=== PATIENT | female | born 1995 | race Caucasian/White ===

== ENCOUNTER 2018-03-07 08:47 | Inpatient (IN) | payer MEDICAID ==
[~2018-03-07] VITALS: Ht 149.9 cm; Wt 84.5 kg
[2018-03-07] VITALS (18 sets, daily range): BP systolic 100–137; BP diastolic 54–83; PULSE 68–87; TEMP 97.9–98.4
[2018-03-07] MEDS ORDERED: PRENATAL1 TA7 PO (09:12)
[2018-03-07 09:48] LABS: BASO % 0.4 % (0.0-2.0); EOS # 0.1 (0.0-0.7); EOS % 0.9 % (0-4.0); GRAN % 66.3 % (42.2-75.2); HEMATOCRIT 38.2 % (35.0-45.0); HEMOGLOBIN 12.9 g/dl (12.0-15.0); LYMPH # 2.2 (1.2-3.4); LYMPH % 23.6 % (20.0-51.0); MEAN CELL VOLUME 82 fl (80.0-95.0); MEAN CORPUSCULAR HEMOGLOBIN 28 pg (26.0-32.0); MEAN CORPUSCULAR HGB CONC 34 g/dl (33.0-37.0); MEAN PLATELET VOLUME 10.3 fl (7.4-10.4); MONO # 0.8 (0.1-0.6); MONO % 8.5 % (1.7-9.3); PLATELET COUNT 284 K/mm3 (130-400); RED BLOOD COUNT 4.65 M/mm3 (4.10-5.30)
[2018-03-08 00:51] VITALS: BP 97/55; PULSE 73; TEMP 98.1
[2018-03-08 04:54] VITALS: BP 119/77; PULSE 67
[2018-03-08 07:20] VITALS: BP 100/59; PULSE 70; TEMP 98.5
[2018-03-08] MEDS ORDERED: IBU600 MG PO (09:13)
== END 2018-03-08 16:15 | disposition home or self-care (01) | DRG 775 ==
LOC: LDRO 08:47 → LDR 08:55 → OB 17:45
PROVIDERS: Obstetrics & Gynecology
PROC: 10E0XZZ Delivery of Products of Conception, External Approach (ICD-10-PCS; principal; 2018-03-07)
PROC: 0UQJXZZ Repair Clitoris, External Approach (ICD-10-PCS; 2018-03-07)
PROC: 0HQ9XZZ Repair Perineum Skin, External Approach (ICD-10-PCS; 2018-03-07)
DX: O70.0 First degree perineal laceration during delivery (principal); Z37.0 Single live birth; O99.02 Anemia complicating childbirth; D64.9 Anemia, unspecified; Z3A.39 39 weeks gestation of pregnancy
CPT/HCPCS: J2590; J7120

== ENCOUNTER 2020-11-16 07:28 | Inpatient (IN) | payer OTHER ==
[~2020-11-16] VITALS: Ht 149.9 cm; Wt 89.1 kg
[2020-11-16] VITALS (36 sets, daily range): BP systolic 70–146; BP diastolic 30–79; PULSE 56–113; TEMP 98.1–99
[~2020-11-16 07:28] MED LIST: IBU600 MG PO; PRENATAL1 TA7 PO
--- NOTE | 2020-11-16 07:45 | NUR ---
Pt arrives on unit ambulatory with spouse for IOL. Changed into clean gown. EFM and toco applied. VSS. Denies regular ctx, LOF, vaginal bleeding, and decreased movement. Admission assessment completed. Consents signed. IV started in LH. Labs drawn. LR infusing. 0814-Dr. Rosas at bedside. SVE per provider /-3. Orders to begin pitocin. Pt updated on POC. Bed locked in low position. Call light within reach. No questions or concerns at this time.
[2020-11-16 08:28] LABS: BASO % 0.5 % (0.0-2.0); EOS # 0.1 (0.0-0.7); EOS % 0.8 % (0-4.0); GRAN # 3.6 (1.4-6.5); GRAN % 60.2 % (42.2-75.2); HEMATOCRIT 38.5 % (37.0-47.0); LYMPH # 1.8 (1.2-3.4); LYMPH % 29.9 % (20.0-51.0); MEAN CELL VOLUME 86 fl (80.0-100.0); MEAN CORPUSCULAR HEMOGLOBIN 29 pg (27.0-31.0); MEAN CORPUSCULAR HGB CONC 34 g/dl (33.0-37.0); MEAN PLATELET VOLUME 10.7 fl (7.4-10.4); MONO # 0.5 (0.1-0.6); MONO % 8.3 % (1.7-9.3); PLATELET COUNT 265 K/mm3 (130-400); REDCELL DISTRIBUTION WIDTH-CV 15.1 % (11.5-14.5)
--- NOTE | 2020-11-16 13:09 | NUR ---
Dr. Rosas at bedside. SVE per provider /-2. AROM of clear fluid noted. Pericare performed. Pt updated on POC. Bed locked in low position. Call light within reach. No questions or concerns at this time.
--- NOTE | 2020-11-16 14:30 | NUR ---
Dr. Rosas at bedside. Begins pushing with patient. 1457- of vialbe female attended by Dr. Rosas. Cord clamped x2 and cut from umbilicus. dried and placed on mother's abdomen. Care of infant to Raina Jones RN. Apgars . 1502- of placenta. Pitocin bolus infusing per protocol. Fundus firm at umbilicus. Bleeding moderate. 1st degree laceration repaired per provider. Pericare performed. Ice pack applied. Pt updated on POC. Bed locked in low position. Call light within reach. No questions or concerns at this time.
[2020-11-16] MEDS ORDERED: PROFERRIN ES12 MG PO (16:17)
[2020-11-17 03:45] VITALS: BP 108/59; PULSE 77; TEMP 98.2
[2020-11-17 08:25] VITALS: BP 107/66; PULSE 68; TEMP 97.9
[2020-11-17] MEDS ORDERED: IBU600 MG PO (08:32)
[2020-11-17 16:00] VITALS: BP 122/75; PULSE 71; TEMP 98.2
== END 2020-11-17 16:30 | disposition home or self-care (01) | DRG 807 ==
LOC: LDR 07:28 → OB 07:28 → LDR 16:29 → OB 17:00
PROVIDERS: ADMIT Obstetrics & Gynecology
PROC: 10E0XZZ Delivery of Products of Conception, External Approach (ICD-10-PCS; principal; 2020-11-16)
PROC: 0HQ9XZZ Repair Perineum Skin, External Approach (ICD-10-PCS; 2020-11-16)
DX: O99.02 Anemia complicating childbirth (principal); Z37.0 Single live birth; Z3A.39 39 weeks gestation of pregnancy; O70.0 First degree perineal laceration during delivery; D64.9 Anemia, unspecified
CPT/HCPCS: J2590; J7120

== ENCOUNTER 2024-02-24 02:56 | Inpatient (IN) | payer OTHER ==
[2024-02-24] VITALS (37 sets, daily range): BP systolic 103–132; BP diastolic 52–84; PULSE 69–111; TEMP 97.5–98.3
[~2024-02-24] VITALS: Ht 154.9 cm; Wt 95.9 kg
[~2024-02-24 02:56] MED LIST changes: +AMOXICILLIN 25250 MG PO; +LEXAPRO 10MG10 MG PO; +PROAIR HFA0.09 MG/AC IH; +PROFERRIN ES12 MG PO; +SYNTHROID0.05 MG/TA PO
--- NOTE | 2024-02-24 03:15 | NUR ---
Ambulatory to unit for labor assessment, accompanied by spouse. Oriented to room, monitor, plan of care. pt reports contractions "since 9:30 last night" Pt deep breathing and arching back with contractions. SVE as noted. Dr Brand on unit, admit orders received.
[2024-02-24] MEDS ORDERED: LR 1,000 ML IV SCH (03:30)
[2024-02-24] MEDS ORDERED: LR & Oxytocin 500 ML IV SCH (03:30)
[2024-02-24 03:54] LABS: BASO % 0.2 % (0.0-2.0); EOS # 0.1 K/mm3 (0.0-0.7); EOS % 0.8 % (0.0-4.0); GRAN # 6.6 K/mm3 (1.4-6.5); GRAN % 69.9 % (42.2-75.2); HEMATOCRIT 37.9 % (37.0-47.0); HEMOGLOBIN 12.8 g/dl (12.5-16.0); LYMPH # 2.1 K/mm3 (1.2-3.4); LYMPH % 21.8 % (20.0-51.0); MEAN CELL VOLUME 84 fl (80.0-100.0); MEAN CORPUSCULAR HEMOGLOBIN 29 pg (27-31); MEAN CORPUSCULAR HGB CONC 34 g/dl (33.0-37.0); MEAN PLATELET VOLUME 10.5 fl (7.4-10.4); MONO # 0.7 K/mm3 (0.1-0.6); PLATELET COUNT 280 K/mm3 (130-400); RED BLOOD COUNT 4.49 M/mm3 (4.10-5.30); REDCELL DISTRIBUTION WIDTH-CV 13.5 % (11.5-14.5)
[2024-02-24] MEDS ORDERED: ROPivacaine PF 0.2% 200 ML IV ONE (03:56)
--- NOTE | 2024-02-24 04:05 | NUR ---
Nando [employer] into room for epidural placement, begins pre-procedure questions and answers. This RN and [employer] 1 [employer] called out of room for OB emergency in another room. Explained to pt that we would be back as soon as possible. Pt verbalizes understanding.
--- NOTE | 2024-02-24 04:45 | NUR ---
FHT's difficult to maintain tracing r/t pt's body habitus and being on birthing ball. Back to bed @ 0500 for monitoring
[2024-02-24] MEDS ORDERED: ePHEDrine 50 MG/10 ML VIAL IV PRN (05:30)
[2024-02-24] MEDS ORDERED: Naloxone 0.4 MG/ML VIAL IV PRN ×2 (05:30→12:30)
[2024-02-24] MEDS ORDERED: diphenhydrAMINE 25 MG CAP PO PRN (05:30)
[2024-02-24] MEDS ORDERED: Ondansetron 4 MG/2 ML VIAL IV PRN (05:30)
[2024-02-24] MEDS ORDERED: diphenhydrAMINE 50 MG/ML 1 ML VIAL IV PRN (05:30)
--- NOTE | 2024-02-24 05:35 | NUR ---
Nando [employer] into room for epidural placement. Pt moves to sit on edge of bed. See anethesia record. FHT's tracing maternal heart rate r/t pt's position and body habitus.
[2024-02-24] MEDS ORDERED: GLUCOPHAGE500 MG/TAB PO (06:45)
[2024-02-24] MEDS ORDERED: SYNTHROID0.088 MG/T PO (06:45)
[2024-02-24] MEDS ORDERED: GLUCOPHAGE1000 MG PO (06:45)
[2024-02-24] MEDS ORDERED: HUMULIN N PE100 U/ML SQ (06:48)
--- NOTE | 2024-02-24 06:50 | NUR ---
PATIENT BLOOD SUGAR 89 AT THIS TIME.
--- NOTE | 2024-02-24 08:25 | NUR ---
TO BEDSIDE TO ASSESS PATIENT PROGRESS. SVE -/-2 PER .
[2024-02-24] MEDS ORDERED: Chloroprocaine PF 3% (30 MG/ML) 20 ML VIAL ONE (08:58)
--- NOTE | 2024-02-24 09:25 | NUR ---
PATIENT BLOOD SUGAR 72 AT THIS TIME.
--- NOTE | 2024-02-24 10:54 | NUR ---
1054- SPONTANEOUS RUPTURE OF MEMBRANES AT THIS TIME, SVE BY THIS RN /-1. 1055- OSEAS VELOZ AT BEDSIDE TO DOSE EPIDURAL SEE ANESTHESIA RECORD.
--- NOTE | 2024-02-24 11:13 | NUR ---
THIS RN AT BEDSIDE HOLDING EFM ON AT THIS TIME. PATIENT REPORTS PRESSURE WITH CONTRACTIONS, SVE 9/-1.
--- NOTE | 2024-02-24 11:25 | NUR ---
THIS RN AT BEDSIDE CONTINUING TO HOLD EFM, PATIENT REPORTS PRESSURE WITH CONTRACTION, SVE /-1.
--- NOTE | 2024-02-24 11:32 | NUR ---
AT BEDSIDE TO ASSESS PATIENT PROGRESS. FOREBAG FELT BY . FOREBAG AROM AT THIS TIME, CLEAR FLUID NOTED.
--- NOTE | 2024-02-24 11:55 | NUR ---
AT BEDSIDE TO ASSESS PATIENT PROGRESS, SVE /-1. PREPARES FOR DELIVERY.
--- NOTE | 2024-02-24 12:13 | NUR ---
1201- BEGINS PUSHING WITH PATIENT. PATIENT COACHED ON PUSHING BY THIS RN AND MYCHAL WARREN RN. DIFFICULTY TRACING FHR DUE TO PUSHING EFFORTS. 1203- THIS RN CONTINUES TO ADJUST EFM FOR FHR TRACING. FHR AUDIBLE IN THE 120S. 1209- SPONTANEOUS DELIVERY OF INFANT HEAD AND BODY AT THIS TIME. 1213- SPONTANEOUS DELIVERY OF PLACENTA AT THIS TIME. PITOCIN STARTED AT 333mU/HR ORDERED AND PER PROTOCOL.
[2024-02-24] MEDS ORDERED: Witch Hazel 50% Pads Bulk TUB TP PRN (12:30)
[2024-02-24] MEDS ORDERED: Phenylephrine/Mineral Oil/Petrolatum 57 GM TUBE RC PRN (12:30)
[2024-02-24] MEDS ORDERED: Loratadine 10 MG TAB PO PRN (12:30)
[2024-02-24] MEDS ORDERED: Magnes Hydrox (MOM) 80 MG/ML 30 ML CUP PO PRN (12:30)
[2024-02-24] MEDS ORDERED: Ibuprofen 600 MG TAB PO SCH (12:30)
[2024-02-24] MEDS ORDERED: Measles/Mumps/Rubella Virus Vaccine Live w Diluent 0.5 ML VIAL SQ SCH (12:30)
[2024-02-24] MEDS ORDERED: Acetaminophen 500 MG TAB PO SCH (12:30)
[2024-02-24] MEDS ORDERED: oxyCODONE 5 MG TAB PO PRN (12:30)
[2024-02-24] MEDS ORDERED: Mag/Al Hydrox/Simeth Susp 30 ML CUP PO PRN (12:30)
--- NOTE | 2024-02-24 15:10 | NUR ---
THIS RN TO BEDSIDE TO ASSIST PATIENT IN AMBULATION. PATIENT DANGLES AT BEDSIDE BEFORE STANDING INDEPENDENTLY WITH THIS RN ON STANDBY. PATIENT AMBULATES TO RESTROOM INDEPENDENTLY WITH THIS RN. PATIENT VOIDS, PERICARE COMPLETED, PATIENT REQUESTS TO DRESS IN HER OWN CLOTHING.
--- NOTE | 2024-02-24 15:15 | NUR ---
PATIENT AND SIGNIFICANT OTHER ASSISTED TO ROOM 214. PATIENT ORIENTED TO THE ROOM AND EDUCATED ON MEASURING VOIDS, BLOOD SUGAR CHECK FOR BABY AND THE USE OF THE CALL LIGHT.
[2024-02-24] MEDS ORDERED: Sennosides/Docusate 8.6-50 MG TAB PO SCH (17:00)
[2024-02-24] MEDS ORDERED: traZODone 50 MG TAB PO PRN (21:00)
[2024-02-25 08:13] VITALS: BP 100/52; PULSE 79; TEMP 98
--- NOTE | 2024-02-25 10:03 | NUR ---
Initial visit; Parents thanked for offering congratulations and Blessings for the of their son. Tuberculosis Specialist thanked family for choosing [facility] and for mentioning their stay here has been very pleasant.
[2024-02-25 16:54] VITALS: BP 109/66; PULSE 74; TEMP 97.8
[2024-02-25 20:45] VITALS: BP 91/57; PULSE 76; TEMP 97.9
[2024-02-26 08:00] VITALS: BP 119/69; PULSE 69; TEMP 98.2
--- NOTE | 2024-02-26 12:23 | NUR ---
PT DISCHARGE COMPLETED. EDUCATION GIVEN AND PT F/U APPOINTMENTS DISCUSSED; PT VERBALIZED UNDERSTANDING. ALL BELONGINGS ACCOUNTED FOR. PATIENT AMBULATORY FROM UNIT IN STABLE CONDITION AT 1222. NO OTHER CONCERNS.
== END 2024-02-26 12:27 | disposition home or self-care (01) | DRG 807 ==
LOC: LDRO 02:56 → LDR 03:45 → OB 18:00
PROVIDERS: Obstetrics & Gynecology; ADMIT Obstetrics & Gynecology
PROC: 10E0XZZ Delivery of Products of Conception, External Approach (ICD-10-PCS; principal; 2024-02-24)
PROC: 0HQ9XZZ Repair Perineum Skin, External Approach (ICD-10-PCS; 2024-02-24)
DX: O99.284 Endocrine, nutritional and metabolic diseases complicating childbirth (principal); Z37.0 Single live birth; Z3A.36 36 weeks gestation of pregnancy; O99.214 Obesity complicating childbirth; O99.02 Anemia complicating childbirth; D64.9 Anemia, unspecified; F41.9 Anxiety disorder, unspecified; F32.A Depression, unspecified; O24.425 Gestational diabetes mellitus in childbirth, controlled by oral hypoglycemic drugs; E03.9 Hypothyroidism, unspecified; O70.0 First degree perineal laceration during delivery; O99.344 Other mental disorders complicating childbirth
CPT/HCPCS: J2401; J2590; J2795; J7120